=== PATIENT | female | born 1995 | race African-American/Black ===

== ENCOUNTER 2018-11-22 23:26 | Emergency (ER) | payer MEDICAID, OTHER ==
[~2018-11-22] VITALS: Ht 170.2 cm; Wt 79.4 kg
[2018-11-22 23:45] VITALS: BP 135/71
--- NOTE | 2018-11-22 23:45 | NUR ---
ED Nurse Note: PATIENT WALKED IN TO ER C/O RIGHT CHEEK PAIN X1 DAY. DENIES FALL OR TRAUMA. AAO X4, VSS AT THIS TIME.
--- NOTE | 2018-11-23 00:54 | Emergency Room Report ---
History of Present Illness General Chief Complaint: Pain Source: Patient Present Illness HPI Patient checked in for evaluation of cheek pain. Eloped before being seen. Allergies: Coded Allergies: No Known Allergies (Unverified , 11/22/18) Patient History Last Menstrual Period: 11/18/18 Now: No Nursing Documentation-[facility] Past Medical History: No History, Except For Physical Exam Vital Signs Date Time Temp Pulse Resp B/P (MAP) Pulse Ox O2 Delivery O2 Flow Rate FiO2 11/22/18 23:28 98.2 88 14 135/71 (92) 98 Room Air Medical Decision Making ER Course Patient eloped prior to my evaluation. Last Vital Signs Date Time Temp Pulse Resp B/P (MAP) Pulse Ox O2 Delivery O2 Flow Rate FiO2 11/22/18 23:45 98.2 14 135/71 98 Room Air 11/22/18 23:28 88 Disposition: ELOPED Scripts No Active Prescriptions or Reported Meds Referrals: [facility],REFERRING (PCP) Sergey Egan MD Nov 23, 2018 00:54
--- NOTE | 2018-11-23 00:54 | NUR ---
ELOPEMENT: Patient ELOPED without being seen.
== END 2018-11-23 00:56 | disposition left against medical advice (07) ==
LOC: EMR 11-23 00:50
DX: Z53.21 Procedure and treatment not carried out due to patient leaving prior to being seen by health care provider (principal)

== ENCOUNTER 2018-11-27 10:13 | Emergency (ER) | payer OTHER ==
[~2018-11-27] VITALS: Ht 170.2 cm; Wt 79.4 kg
[2018-11-27] MEDS ORDERED: NKM (10:20)
[2018-11-27 10:28] VITALS: BP 119/72
--- NOTE | 2018-11-27 10:29 | NUR ---
ED Nurse Note: pt walked in due to right side facial pain started 3 days ago, pt vss, pt able to ambulate with steady gait, pt able to answer questions appropriately, pt stated it hurts when she yawns. ermd on bedside. will continue to monitor.
--- NOTE | 2018-11-27 10:30 | NUR ---
ED Nurse Note: pt able to give urine and was sent to lab
[2018-11-27] MEDS ORDERED: PENICILLIN V P250 MG PO (10:32)
[2018-11-27] MEDS ORDERED: NAPROXEN250 MG ORAL (10:32)
--- NOTE | 2018-11-27 10:32 | Emergency Room Report ---
History of Present Illness General Chief Complaint: Pain Source: Patient Present Illness HPI 23-year-old female presents with 3 days of right gum pain, patient denies any fevers chills she states that there is a mild throbbing pain below her teeth on the right upper molar, it swells and comes and goes, aching in nature mild severity Allergies: Coded Allergies: No Known Allergies (Unverified , 11/22/18) Patient History Past Medical History: see triage record Last Menstrual Period: 11/14/2018 Reviewed Nursing Documentation: PMH: Agreed; PSxH: Agreed Nursing Documentation-PMH Past Medical History: No History, Except For Hx Cardiac Problems: No Hx Hypertension: No Hx Pacemaker: No Hx Asthma: No Hx COPD: No Hx Diabetes: No Hx Cancer: No Hx Gastrointestinal Problems: No - 'Kidney problem when I was born' Hx Dialysis: No Hx Neurological Problems: No Hx Cerebrovascular Accident: No Hx Seizures: No Review of Systems All Other Systems: negative except mentioned in HPI Physical Exam Vital Signs Date Time Temp Pulse Resp B/P (MAP) Pulse Ox O2 Delivery O2 Flow Rate FiO2 11/27/18 10:16 98.2 85 19 119/72 (88) 99 Room Air Sp02 EP Interpretation: reviewed, normal General Appearance: well appearing, no apparent distress, alert Head: normocephalic, atraumatic Eyes: bilateral eye PERRL, bilateral eye EOMI ENT: uvula midline, moist mucus membranes, other - Right molar upper swelling noted, no pus or drainage, poor dentition noted Neck: supple, thyroid normal, supple/symm/no masses Respiratory: lungs clear, no respiratory distress, no retraction, no accessory muscle use Cardiovascular #1: normal peripheral pulses, regular rate, rhythm, no edema, no gallop, no murmur Gastrointestinal: non tender, soft, no guarding, no rebound Musculoskeletal: normal inspection Neurologic: alert, oriented x3 Psychiatric: mood/affect normal Skin: no rash, warm/dry Medical Decision Making Diagnostic Impression: Primary Impression: Dental caries ER Course Patient most likely with a dental infection/pulp infection counseled patient to follow-up with a dentist, will start antibiotics here. Last Vital Signs Date Time Temp Pulse Resp B/P (MAP) Pulse Ox O2 Delivery O2 Flow Rate FiO2 11/27/18 10:16 98.2 85 19 119/72 (88) 99 Room Air Disposition: HOME, SELF-CARE Condition: Stable Scripts Penicillin V Potassium (Penicillin V Potassium) 250 Mg Tablet 250 MG PO Q6H, #28 TAB 0 Refills Prov: Raoul Otto MD 11/27/18 Naproxen* (NAPROSYN*) 250 Mg Tablet 250 MG ORAL BID PRN for For Pain, #20 TAB 0 Refills Prov: Raoul Otto MD 11/27/18 Referrals: [facility] Patient Instructions: Dental Care and Dentist Visits, Dental Caries, Easy-to- Read, Dental Pain Additional Instructions: The patient was provided with discharge instructions, notified to follow-up with a primary care doctor and or specialist in the next 24-48 hours, and to return to the ED if they have worsening of their symptoms. Please note that this report is being documented using [employer] technology. This can lead to erroneous entry secondary to incorrect interpretation by the dictating instrument. Raoul Otto MD Nov 27, 2018 10:32
[2018-11-27 10:57] VITALS: BP 119/72
--- NOTE | 2018-11-27 10:57 | NUR ---
ER DISCHARGE NOTE: Patient is cleared to be discharged per ERMD, pt is aox4, on room air, with stable vital signs. pt was given dc and prescription instructions, pt was able to verbalize understanding, pt id band removed without complications. pt is able to ambulate with steady gait. pt took all belongings.
== END 2018-11-27 10:57 | disposition home or self-care (01) ==
LOC: EMR 10:28
DX: K02.9 Dental caries, unspecified (principal)
CPT/HCPCS: 81025; 99282

== ENCOUNTER 2020-01-06 08:57 | Emergency (ER) | payer MEDICAID, OTHER ==
[~2020-01-06] VITALS: Ht 172.7 cm; Wt 79.8 kg
[~2020-01-06 08:57] MED LIST: NAPROXEN250 MG ORAL; NKM; PENICILLIN V P250 MG PO
[2020-01-06] MEDS ORDERED: AUGMENTIN 875-1 EAC1 ORAL (09:03)
[2020-01-06] MEDS ORDERED: TYLENOL EXTRA500 MG ORAL (09:03)
--- NOTE | 2020-01-06 09:04 | Emergency Room Report ---
History of Present Illness General Chief Complaint: To Be Triaged Source: Patient Present Illness HPI 24-year-old female with past medical history of dental caries presents with dental pain and swollen gums x 3 days. Patient was told to follow-up with her dentist at [facility] last week, however did not have an appointment in the waiting room as well so she left. She has a scheduled appointment this week with her dentist. She came to the ER because the pain was severe and she could not go to sleep. She has not tried any medication to alleviate her symptoms. She is hoping to get an antibiotic She denies shortness of breath, difficulty swallowing, trismus, stridor, drooling, fever or shortness of breath, fever The patient's symptoms were gradual onset, severity was moderate, duration since 3 days. Quality: Aching Past medical history: Dental caries, sciatica Past surgical history: Denies Smoking: Denies Alcohol use: Denies Drug use: Denies Review of systems: CONST: No fevers or chills, No night sweats PULMONARY: No productive cough, No shortness of breath CARDIAC: No chest pain, No palpitations GI: No vomiting, No diarrhea , No melena_or_BRBPR : No dysuria, No hematuria, No discharge NEURO: No new_focal_weakness_or_numbness, No confusion, No vision changes 14 point Review of Systems is otherwise negative except per HPI Physical Exam: GENERAL: Awake_alert_ nontoxic, no acute distress Spo2 96% on RA -normal EYES: Extraocular muscles are intact. Conjunctivae clear. Lids without swelling ENT: External nose and ear normal_in_appearance. Oropharynx clear. Head_atraumatic, Moist_oral_mucosa Multiple dental caries. She has a minimal amount of gum swelling adjacent to the root of the right third molar (tooth #32). NO discrete apical abscess Uvula is midline. No hot potato voice, stridor, drooling, tracheal tenderness to palpation. NECK: No JVD. No meningismus. No thyromegaly. Supple. Trachea midline RESP: Normal respiratory effort. Symmetric rise. No stridor. Clear_to_auscultation_No_rales_No_wheezes CARDIAC: Regular rate and regular rhytm. No_significant pedal edema. ABDOMEN: Soft. Nondistended. Nontender_No_rebound_or_guarding. MSK: Normal muscle tone, without rigidity. Extremities without asymmetric deformity or swelling. SKIN: Warm and dry. No visible cyanosis or pallor NEUROLOGIC: Alert, oriented x3. Motor_and_sensation_grossly_intact. No truncal ataxia. Gait_normal Psych: Normal mood and affect, normal judgment and insight - COORDINATION OF CARE Case was discussed with: Patient Medical Decision Making/Plan: DDx: dentalgia, tooth fx, apical abscess, no signs of deep space neck infection or vance Pt is well appearing and afebrile. Oropharynngeal exam is consistent with dental rene without apical absess or evidence of deep space neck infection. Airway is intact. No stridor, drooling, hoarse voice or red flag for deep space neck infection. No angioedema She has f/u with Dentist this week for dental extraction. Pertinent exam findings reviewed with the patient. I educated the patient on the current treatment plan including the risks, benefits, and alternatives. I also discussed the extent and limitations of the current evaluation. The patient expressed understanding and agreement with plan. I recommended PMD follow-up within 1-2 days. Also advised that the patient return to the Emergency Department as soon as possible if they experience any new, persistent, or worsening symptoms. Allergies: Coded Allergies: No Known Allergies (Unverified , 11/22/18) Nursing Documentation-PMH Hx Cardiac Problems: No Hx Hypertension: No Hx Pacemaker: No Hx Asthma: No Hx COPD: No Hx Diabetes: No Hx Cancer: No Hx Gastrointestinal Problems: No - 'Kidney problem when I was born' Hx Dialysis: No Hx Neurological Problems: No Hx Cerebrovascular Accident: No Hx Seizures: No Physical Exam Sp02 EP Interpretation: reviewed, normal Medical Decision Making Diagnostic Impression: Primary Impression: Dentalgia Additional Impression: Dental caries Disposition: HOME, SELF-CARE Admit Decision Time: 09:30 Condition: Stable Scripts Acetaminophen* (TYLENOL EXTRA STRENGTH*) 500 Mg Tablet 500 MG ORAL Q8H PRN for Prn Headache/Temp > 101, #30 TAB 0 Refills Prov: Priscila Mackay D.O. 01/06/20 Amoxicillin/Potassium Clav 875-125* (AUGMENTIN 875-125 TABLET*) 1 Each Tablet 1 TAB ORAL TWICE A DAY, #14 TAB Prov: Priscila Mackay D.O. 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 Follow-up with your doctor sooner if your condition requires a more timely clinical reevaluation. Return to the emergency department immediately if you feel that your condition is worsening or if you have any new or concerning symptoms. Review your discharge instructions and take any prescriptions given as instructed. [facility] PROVIDES FREE OR LOW-COST HEALTH SERVICES TO PEOPLE WHO CAN SHOW PROOF THAT THEY LIVE IN [facility]. TO FIND MORE CLINICS PARTNERED WITH [facility] TO PROVIDE SERVICE, PLEASE CALL . Priscila Mackay D.O. Jan 06, 2020 09:04
[2020-01-06 09:09] VITALS: BP 127/74
--- NOTE | 2020-01-06 09:11 | NUR ---
ED Nurse Note: Patient form home and walked in due to upper gum pain and swelling x 1 day. No other symptoms. breathing normal/even/unlabored. skin warm/dry. a/ox4. NAD noted
[2020-01-06 09:12] VITALS: BP 127/74
== END 2020-01-06 09:12 | disposition home or self-care (01) ==
LOC: EMR 09:12
DX: K02.9 Dental caries, unspecified (principal)
CPT/HCPCS: 99282